=== PATIENT | female | born 1985 | race Caucasian/White ===

== ENCOUNTER 2023-12-18 13:04 | Outpatient (CLI) | payer OTHER, SELFPAY ==
--- NOTE | 2023-12-18 13:20 | CRLHL7_ITS ---
For Patients: As a result of the Century Cures Act, medical imaging exams and procedure reports are released immediately into your electronic medical record. You may view this report before your referring provider. If you have questions, please contact your health care provider. BILATERAL SCREENING MAMMOGRAM WITH COMPUTER-AIDED DETECTION AND TOMOSYNTHESIS TECHNIQUE: CC and MLO views were obtained. These mammographic images have been obtained using full-field digital technique. These mammographic images were interpreted with the benefit of computer-aided detection. Breast Tomosynthesis was used in this interpretation. COMPARISON FILM: Baseline. FINDINGS: The breasts are heterogeneously dense, which may obscure small masses IMPRESSION: There is no radiographic evidence for malignancy. ASSESSMENT: BI-RADS Category 1: Negative RECOMMENDATION: Routine screening mammogram in 1 year. A lay language report of this examination will be provided to the patient. Jonh Bower M.D. Diagnostic Radiologist [email or web address] Transcribed: 3:21 p.jose galvan/Dictated by: Jonh Bower MD @ 12/20/2023 10:58:00 AM (Electronically Signed)
== END 2023-12-18 13:05 | disposition home or self-care (01) ==
LOC: MAMMO 13:05
PROVIDERS: Visit Provider Obstetrics & Gynecology
DX: Z12.31 Encounter for screening mammogram for malignant neoplasm of breast (principal); R92.2 Inconclusive mammogram
CPT/HCPCS: 77063; 77067

== ENCOUNTER 2023-12-27 08:08 | Outpatient (CLI) | payer OTHER, SELFPAY | END 2023-12-27 08:09 | disposition home or self-care (01) | LOC: NFLDREF 12-31 11:25 | PROVIDERS: Visit Provider Obstetrics & Gynecology | DX: Z13.220 Encounter for screening for lipoid disorders (principal); Z83.49 Family history of other endocrine, nutritional and metabolic diseases | CPT/HCPCS: 80061; 84443 ==